=== PATIENT | female | born 1980 | race Two or more races ===

== ENCOUNTER → 2019-01-22 | Outpatient (CLI) | payer BC, OTHER ==
[~2019-01-22] MED LIST: METR-90 PO; NORG1TAB65 PO; birth control PO
[2019-01-22 16:12] LABS: BASOPHILS # (AUTO) 0.04 x10^3/uL (0-0.1); BASOPHILS % (AUTO) 1 % (0-1); EOSINOPHILS # (AUTO) 0.16 x10^3/uL (0-0.4); EOSINOPHILS % (AUTO) 2 % (1-7); LYMPHOCYTES # (AUTO) 2.05 x10^3/uL (1-3.4); LYMPHOCYTES % (AUTO) 25 % (22-44); MD NO; MEAN CORPUSCULAR HEMOGLOBIN 30.4 pg (27.0-34.8); MEAN CORPUSCULAR HGB CONC 33.4 g/dL (32.4-35.8); MEAN PLATELET VOLUME 7.5 fL (7.4-10.4); MONOCYTES # (AUTO) 0.64 x10^3/uL (0.2-0.8); MONOCYTES % (AUTO) 8 % (2-9); NEUTROPHILS # (AUTO) 5.18 x10^3/uL (1.8-6.8); NEUTROPHILS % (AUTO) 64 % (42-75); PLATELET COUNT 294 x10^3/uL (130-400); RED BLOOD COUNT 4.57 x10^6/uL (3.82-5.3); RED CELL DISTRIBUTION WIDTH 14.5 % (9.6-15.2)
== END | disposition home or self-care (01) ==
LOC: STAR 15:11
PROVIDERS: ATTEND Obstetrics & Gynecology
DX: Z30.430 Encounter for insertion of intrauterine contraceptive device (principal)
CPT/HCPCS: 36415; 84702; 85025

== ENCOUNTER 2019-01-26 15:00 | Day surgery (SDC) | payer BC, OTHER ==
[~2019-01-26] VITALS: Ht 162.6 cm; Wt 120.0 kg
[2019-01-26] MEDS ORDERED: LACTATED RINGERS 1,000 ML IV SCH (15:11)
[2019-01-26 15:23] VITALS: BP 124/91
[2019-01-26 15:39] LABS: HCG UR SG 1.019 (1.003-1.030)
[2019-01-26] MEDS ORDERED: FENTANYL PF 100 MCG/2ML ONE (15:52)
[2019-01-26] MEDS ORDERED: MIDAZOLAM 1 MG/ML, 2ML ONE (15:52)
[2019-01-26] MEDS ORDERED: SCOPOLAMINE PATCH, 1.5MG PATCH.TD72 TD ONE (16:00)
[2019-01-26] MEDS ORDERED: DIAZEPAM 5 MG TABLET PO ONE ×2 (16:00)
[2019-01-26] MEDS ORDERED: ACETAMINOPHEN 500 MG TABLET PO ONE (16:00)
[2019-01-26] MEDS ORDERED: GABAPENTIN 300 MG CAPSULE PO ONE (16:00)
[2019-01-26] MEDS ORDERED: MISOPROSTOL 200 MCG TABLET ONE (16:01)
[2019-01-26] MEDS ORDERED: SILVER NITRATE STICK TP ONE (16:01)
[2019-01-26] MEDS ORDERED: OXYTOCIN 10 UNITS/ML, 1ML ONE (16:01)
[2019-01-26] MEDS ORDERED: METHYLERGONOVINE 0.2 MG/ML IM ONE (16:01)
[2019-01-26] MEDS ORDERED: METOCLOPRAMIDE 5 MG/ML, 2ML ONE (16:32)
[2019-01-26] MEDS ORDERED: KETOROLAC 30 MG/1 ML ONE (16:32)
[2019-01-26] MEDS ORDERED: ONDANSETRON 2MG/ML, 2ML ONE (16:54)
[2019-01-26] MEDS ORDERED: PROPOFOL 10 MG/ML, 20ML ONE (16:54)
[2019-01-26] MEDS ORDERED: DEXAMETHASONE 4 MG/ML, 1ML ONE (16:54)
[2019-01-26] MEDS ORDERED: MEPERIDINE/PF 25MG/0.5ML IVPush PRN (17:00)
[2019-01-26] MEDS ORDERED: PROMETHAZINE 25 MG/ML, 1ML IV PRN (17:00)
[2019-01-26] MEDS ORDERED: HYDROmorphone 2 MG/ML, 1ML IVPush PRN (17:00)
[2019-01-26] MEDS ORDERED: hydrALAzine 20 MG/ML, 1ML IV PRN (17:00)
[2019-01-26] MEDS ORDERED: METOPROLOL 1 MG/ML, 5ML IV PRN (17:00)
[2019-01-26] MEDS ORDERED: ALBUTEROL/IPRATROPIUM 2.5MG/0.5MG, 3 ML NPPB PRN (17:00)
[2019-01-26] MEDS ORDERED: ONDANSETRON 2MG/ML, 2ML IV PRN (17:00)
[2019-01-26] MEDS ORDERED: FENTANYL PF 100 MCG/2ML IV PRN (17:00)
[2019-01-26] MEDS ORDERED: OXYcodone 5 MG/5 ML ORAL.SOL UDC PO PRN (17:00)
[2019-01-26] MEDS ORDERED: MIDAZOLAM 1 MG/ML, 2ML IV PRN (17:00)
== END 2019-01-26 20:26 | disposition home or self-care (01) ==
LOC: OR 15:00 → 4NOR 18:00 → OR 20:26
PROVIDERS: ATTEND Obstetrics & Gynecology
DX: N84.0 Polyp of corpus uteri (principal); Z30.430 Encounter for insertion of intrauterine contraceptive device; G43.909 Migraine, unspecified, not intractable, without status migrainosus; E66.01 Morbid (severe) obesity due to excess calories; Z68.42 Body mass index [BMI] 45.0-49.9, adult; Z98.890 Other specified postprocedural states
CPT/HCPCS: 58120; 58300; 81025; 88305; J1100; J1885; J2250; J2405; J2704; J2765; J3010; J7120; G0378; J2210; J2590

== ENCOUNTER 2020-06-23 11:59 | Emergency (ER) | payer OTHER ==
[~2020-06-23] VITALS: Ht 162.6 cm; Wt 117.0 kg
[2020-06-23 13:35] LABS: BASOPHILS % (AUTO) 1 % (0-1); EOSINOPHILS % (AUTO) 0 % (1-7); LYMPHOCYTES % (AUTO) 15 % (22-44); MEAN CORPUSCULAR HEMOGLOBIN 29.4 pg (27.0-34.8); MEAN CORPUSCULAR HGB CONC 33.5 g/dL (32.4-35.8); MEAN PLATELET VOLUME 7.4 fL (7.4-10.4); MONOCYTES % (AUTO) 6 % (2-9); NEUTROPHILS % (AUTO) 78 % (42-75); PLATELET COUNT 219 x10^3/uL (130-400); RED BLOOD COUNT 4.86 x10^6/uL (3.82-5.3); RED CELL DISTRIBUTION WIDTH 14.5 % (9.6-15.2)
[2020-06-23 13:41] LABS: MD NO
[2020-06-23 13:48] LABS: ANION GAP 5 mmol/L (5-15); CHLORIDE 105 mmol/L (98-107)
[2020-06-23 13:49] LABS: ALANINE AMINOTRANSFERASE 28 U/L (12-78); ALBUMIN 3.9 g/dL (3.4-5.0); ALKALINE PHOSPHATASE 93 U/L (45-117); BILIRUBIN,TOTAL 0.4 mg/dL (0.2-1.0); CREATININE 0.72 mg/dL (0.55-1.02); TOTAL PROTEIN 8.9 g/dL (6.4-8.2)
--- NOTE | 2020-06-23 15:27 | NUR ---
PATIENT WALKED BACK FROM TRIAGE WITH CHIEF C/O LOW OXYGEN SATURATION. PER PATIENT SHE TESTED POSITIVE FOR COVID LAST SATURDAY AT [facility]. PATIENT STATES THE LOWEST HER O2 SATURATION AT HOME WAS, WAS 87%. PATIENT REPORTS FEVER AND COUGH, DENIES N/V, BUT HAS HAD SOME DIARRHEA. NO SIGNS OF ACUTE DISTRESS, CONNECTED TO VITALS MACHINE, O2 SATURATION 92% ON RA,CALL LIGHT WITHIN REACH.
--- NOTE | 2020-06-23 16:46 | NUR ---
PATIENT PROVIDED BSC, NO SIGNS OF ACUTE DISTRESS, CALL LIGHT WITHIN REACH.
[2020-06-23] MEDS ORDERED: DOXYCYCLINE 100MG TABLET PO ONE (17:00)
--- NOTE | 2020-06-23 17:18 | NUR ---
PATIENT 92%-93% RA WITH AMBULATION, PROVIDER NOTIFIED.
[2020-06-23 18:14] VITALS: BP 108/76
--- NOTE | 2020-06-23 18:15 | NUR ---
Patient given discharge instructions and they have confirmed that they understand the instructions. Patient in stable condition and ambulatory with steady gait from ED.
== END 2020-06-23 18:15 | disposition home or self-care (01) ==
LOC: ED 18:00
DX: B34.9 Viral infection, unspecified (principal)
CPT/HCPCS: 36415; 71045; 80053; 85025; 99284